=== PATIENT | female | born 1930 | race Caucasian/White ===

== ENCOUNTER 2018-05-31 11:29 | Inpatient (IN) ==
[2018-05-31] MEDS ORDERED: Morphine Inj 4 MG/ML Vial IV.PUSH ONE (12:11)
--- NOTE | 2018-05-31 12:23 | ED ---
HPI General Chief Complaint: Back Pain/Injury Stated Complaint: Lower back pain x 1 week History of Present Illness HPI Narrative: The patient was seen and examined in the presence of the nurse. This patient is brought in by her son for back pain. She does have some degree of chronic back pain but is much worse in the last few days. She is having difficulty getting out of bed. She typically uses cane or walker. No specific injury recently. Denies fever or urinary complaints. Worse with movement. No alleviating factors. Symptoms are moderate to severe in nature. Related Data Home Medications Medication Instructions Recorded Confirmed Synthroid 75 mg PO DAILY 05/31/18 05/31/18 amlodipine 2.5 mg PO DAILY 05/31/18 05/31/18 aspirin [Aspir-81] 81 mg PO DAILY 05/31/18 05/31/18 brinzolamide [Azopt] 1 drp OPHTHALMIC (EYE) BID 05/31/18 05/31/18 fexofenadine-pseudoephedrine 1 tab PO QAM PRN 05/31/18 05/31/18 [Dina-D 24 Hour] fluticasone [Flonase Allergy 2 spray INTRANASAL DAILY 05/31/18 05/31/18 Relief] hydrochlorothiazide 12.5 mg PO DAILY 05/31/18 05/31/18 magnesium 500 mg PO DAILY 05/31/18 05/31/18 meloxicam 15 mg PO DAILY 05/31/18 05/31/18 metoprolol succinate 100 mg PO DAILY 05/31/18 05/31/18 mirabegron [Myrbetriq] 25 mg PO DAILY 05/31/18 05/31/18 omeprazole 40 mg PO DAILY 05/31/18 05/31/18 rosuvastatin [Crestor] 5 mg PO DAILY 05/31/18 05/31/18 Previous Rx's Medication Instructions Recorded hydrocodone-acetaminophen [[place]] 1 tab PO Q6H PRN #12 tab 05/31/18 Allergies Allergy/AdvReac Type Severity Reaction Status Date / Time penicillin G Allergy Severe Rash Verified 05/31/18 11:46 diatrizoate meglumine Allergy Unknown Difficulty Verified 05/31/18 11:46 Breathing gadobenic acid Allergy Unknown Difficulty Verified 05/31/18 11:46 Breathing gadodiamide Allergy Unknown Difficulty Verified 05/31/18 11:46 Breathing gadoteridol Allergy Unknown Difficulty Verified 05/31/18 11:46 Breathing iodixanol Allergy Unknown Difficulty Verified 05/31/18 11:46 Breathing iohexol Allergy Unknown Difficulty Verified 05/31/18 11:46 Breathing Review of Systems ROS: all other systems reviewed are negative [facility] Medical History Medical History Glaucoma (Acute) High cholesterol (Acute) Hypertension (Acute) Surgical History Surgical History History of dilatation and curettage (Acute) Social History Social History Substance History: No History of Abuse Second Hand Smoke Exposure: No Smoking Status: Never smoker How Often Do You Have a Drink Containing Alcohol: Never Recent Travel in [facility] within the Last 8 Weeks: No Recent Out of Country Travel within the Last 8 Weeks: No Exam Narrative Exam Narrative: GENERAL: Elderly demented appearing patient with back pain . SKIN: Focused skin assessment reveals no rash and nodules. Skin is Warm and dry. HEAD: Atraumatic. Normocephalic. EYES: Pupils equal and round. No scleral icterus. No injection or drainage. ENT: No nasal bleeding or discharge. Mucous membranes pink and moist. NECK: Trachea midline. No JVD. CARDIOVASCULAR: Regular rate and rhythm. No murmur appreciated. RESPIRATORY: No accessory muscle use. Clear to auscultation. Breath sounds equal bilaterally. GASTROINTESTINAL: Abdomen soft, non-tender, nondistended. Hepatic and splenic margins not palpable. MUSCULOSKELETAL: No obvious deformities. No clubbing. No cyanosis. No edema. Examination of back reveals no midline tenderness. No bruising or swelling NEUROLOGICAL: Awake and alert. No obvious cranial nerve deficits. Motor grossly within normal limits. Normal speech. PSYCHIATRIC: Appropriate mood and affect; insight and judgment is poor consistent with dementia Course Initial Documented Vital Signs Temperature 98.2 F 05/31/18 11:38 Pulse Rate 64 05/31/18 11:38 Respiratory Rate 16 05/31/18 11:38 Blood Pressure 137/62 05/31/18 11:38 Pulse Oximetry 99 05/31/18 11:38 Last Documented Vital Signs Temperature 98.2 F 05/31/18 11:38 Pulse Rate 60 05/31/18 15:10 Respiratory Rate 16 05/31/18 11:38 Blood Pressure 160/54 H 05/31/18 15:10 Pulse Oximetry 98 05/31/18 15:10 Medical Decision Making MDM Narrative Medical decision making narrative: Patient is very vague in her history giving skills are challenged by her dementia. Son says he is call the doctor's office 3 times to ask for an MRI be done but no one returns calls. I am ordering extensive workup to rule out dangerous things such as herniated disc compressing her cord or AAA. I do not see any objective neurologic deficit. Medical Screen Exam Complete: Yes Emergency Medical Condition: Yes Differential Diagnosis Differential Diagnosis: AAA, disc herniation, sciatica Medical Records Medical records reviewed: Yes I reviewed the patient's medical records. Hyponatremia is not new. Review of labs from 2016 show sodium of 128 Lab Data Lab results reviewed: Yes I reviewed the patient's lab results. Lab results narrative: Urine will be cultured but given the lack of urine symptoms are not going to throw antibiotics at her prior to culture results. CBC is normal. She has hyponatremia which is chronic Result diagrams: 05/31/18 12:15 05/31/18 12:15 Lab Results 05/31/18 05/31/18 05/31/18 Range/Units 12:15 12:15 13:00 CBC w Diff Auto diff final WBC 8.9 (4.0-11.0) th/mm3 RBC 3.65 L (4.00-5.30) mil/mm3 Hgb 12.5 (11.6-15.3) gm/dL Hct 36.8 (35.0-46.0) % MCV 100.7 H (80.0-100.0) fL MCH 34.3 H (27.0-34.0) pg MCHC 34.0 (32.0-36.0) % RDW 11.8 (11.6-17.2) % Plt Count 282 (150-450) th/mm3 MPV 7.1 (7.0-11.0) fL Neut % (Auto) 75.5 H (16.0-70.0) % Lymph % (Auto) 10.8 (9.0-44.0) % [place] % (Auto) 7.7 (0.0-8.0) % Eos % (Auto) 1.7 (0.0-4.0) % Baso % (Auto) 4.3 H (0.0-2.0) % Neut # (Auto) 6.6 (1.8-7.7) th/mm3 Lymph # (Auto) 1.0 (1.0-4.8) th/mm3 [place] # (Auto) 0.7 (0.0-0.9) th/mm3 Eos # (Auto) 0.2 (0.0-0.4) th/mm3 Baso # (Auto) 0.4 H (0.0-0.2) th/mm3 WBC Differential . Differential Comment . Sodium 127 L (136-145) meq/L Potassium 3.5 (3.5-5.1) meq/L Chloride 90 L (98-107) meq/L Carbon Dioxide 28.4 (21.0-32.0) meq/L Anion Gap 9 (5-15) meq/L BUN 32 H (7-18) mg/dL Creatinine 0.70 (0.50-1.00) mg/dL Estimated GFR 79 L (>89) mL/min Random Glucose 100 (74-106) mg/dL Calcium 8.6 (8.5-10.1) mg/dL Ur Collection Type Clean catch Urine Color Yellow (Yellw/Straw) Urine Clarity Cloudy H (Clear) Urine pH 7.0 (5.0-8.5) Ur Specific [place] 1.015 (1.002-1.035) Urine Protein Trace (Neg-Trace) mg/dL Urine Glucose (UA) Negative (Negative) mg/dL Urine Ketones Negative (Negative) mg/dL Urine Occult Blood Large H (Negative) Urine Nitrate Negative (Negative) Urine Bilirubin Negative (Negative) Urine Urobilinogen 0.2 (Less than 2) mg/dL Ur Leukocyte Esterase Moderate H (Negative) Urine RBC 51-189 H (0-3) /hpf Urine WBC 21-50 H (0-5) /hpf Urine WBC Clumps Few H (None) Ur Squamous Epith Cells 0-5 (0-5) /hpf Amorphous Sediment Moderate H (None) /hpf Urine Bacteria Few H (None) /hpf Micro UA Comment Culture indicated Ur Microscopic Review Microscopic reviewed Urine Culture Comments Culture indicated Urine Collection Time 1300 hours Imaging Data Attestation: I personally reviewed and interpreted this imaging study as follows : My impression: Abdomen and pelvis CT as well as lumbar spine CT both reveal multiple unknown chronicity compression fractures including L1 and L3 and L4 Radiologist's impression: Abdomen/Pelvis CT 05/31/18 12:54 CONCLUSION: 1. Mild to moderate L1 compression fracture of unknown chronicity but new since 2016 exam. 2. Mild compression deformities of the inferior endplate of L3 and superior endplate of L4 with configuration suggestive of Schmorl's nodes. These are also new since 2016 exam. Cannot exclude mild compression fractures. 3. Consider MRI examination to evaluate for bone marrow edema and chronicity particularly if patient is symptomatic at palpation of the spinous processes at these levels. There is no significant bony spinal canal stenosis. 4. Additional ancillary findings, as above. Lumbar Spine CT 05/31/18 12:54 CONCLUSION: 1. There are compression deformities of L1, L3, L4, and L5 that are new since the prior study from October 2015. No clear acute fracture line is identified. Therefore, these are age indeterminate but suspected to be subacute or chronic given the appearance. MRI could determine the age, if clinically needed. 2. Stable grade 1 anterolisthesis of L3 on L4 and L4 on L5 secondary to facet arthrosis. 3. No spinal canal stenosis is identified. There are multiple areas of mild to moderate neural foraminal narrowing, as above. 4. Severe atherosclerotic disease. Discharge Plan Discharge Disposition Patient Disposition: Discharge Home Discharge Order Discharge Orders: Discharge Order (Routine); Ordered 05/31/18 Ordered By: Anthony Ayala Discharge Details Diagnosis: Compression fracture, Chronic hyponatremia Physicians Team ED Provider: Anthony Ayala Primary Care Provider: Rosendo Ortega Rxs /Orders / Referrals /Forms Prescriptions: New hydrocodone-acetaminophen [[place]] 5-325 mg tablet 1 tab PO Q6H PRN (Reason: pain) Qty: 12 RF: 0 No Action metoprolol succinate 100 mg Tablet Extended Release 24 Hr 100 mg PO DAILY RF: 0 aspirin [Aspir-81] 81 mg Tablet,Delayed Release (Dr/Ec) 81 mg PO DAILY RF: 0 Synthroid 75 mg PO DAILY RF: 0 amlodipine 2.5 mg Tablet 2.5 mg PO DAILY RF: 0 omeprazole 40 mg Capsule,Delayed Release(Dr/Ec) 40 mg PO DAILY RF: 0 magnesium 250 mg Tablet 500 mg PO DAILY RF: 0 rosuvastatin [Crestor] 5 mg Tablet 5 mg PO DAILY RF: 0 brinzolamide [Azopt] 1 % Drops,Suspension 1 drp OPHTHALMIC (EYE) BID RF: 0 hydrochlorothiazide 12.5 mg Tablet 12.5 mg PO DAILY RF: 0 mirabegron [Myrbetriq] 25 mg Tablet Extended Release 24 Hr 25 mg PO DAILY RF: 0 meloxicam 15 mg Tablet 15 mg PO DAILY RF: 0 fluticasone [Flonase Allergy Relief] 50 mcg/actuation [place],Suspension 2 spray INTRANASAL DAILY RF: 0 fexofenadine-pseudoephedrine [Dina-D 24 Hour] 180-240 mg Tablet Extended Release 24 Hr 1 tab PO QAM PRN (Reason: Allergy Symptoms) RF: 0 Discharge Instructions Additional Instructions: Follow-up with primary care physician. Discuss placement options with your physician. The patient was warned about potential sedation for the medications they will receive on prescription. Return if significant worsening occurs. Utilize walker Discharge Interventions Interventions: Vital Signs Last Done: 05/31/18 15:10 Status ED Status: In Room
[2018-05-31 13:09] LABS: Baso # (Auto) 0.4 th/mm3 (0.0-0.2); Baso % (Auto) 4.3 % (0.0-2.0); Eos # (Auto) 0.2 th/mm3 (0.0-0.4); Eos % (Auto) 1.7 % (0.0-4.0); Hematocrit 36.8 % (35.0-46.0); Hemoglobin 12.5 gm/dL (11.6-15.3); Lymph % (Auto) 10.8 % (9.0-44.0); Mean Corpuscular Hemoglobin 34.3 pg (27.0-34.0); Mean Corpuscular Volume 100.7 fL (80.0-100.0); Mean Platelet Volume 7.1 fL (7.0-11.0); Mono # (Auto) 0.7 th/mm3 (0.0-0.9); Mono % (Auto) 7.7 % (0.0-8.0); Neut # (Auto) 6.6 th/mm3 (1.8-7.7); Neut % (Auto) 75.5 % (16.0-70.0); Platelet Count 282 th/mm3 (150-450); Red Blood Count 3.65 mil/mm3 (4.00-5.30); Red Cell Distribution Width 11.8 % (11.6-17.2); White Blood Count 8.9 th/mm3 (4.0-11.0)
[2018-05-31 13:13] LABS: Bilirubin,Urine Negative (Negative); Clarity,Urine Cloudy (Clear); Color,Urine Yellow (Yellw/Straw); Glucose,Urine (UA) Negative (Negative); Leukocyte Esterase,Urine Moderate (Negative); Nitrite,Urine Negative (Negative); Specific Gravity,Urine 1.015 (1.002-1.035); Urobilinogen,Urine 0.2 mg/dL (Less than 2)
[2018-05-31 13:18] LABS: Potassium 3.5 meq/L (3.5-5.1)
[2018-05-31 13:21] LABS: Calcium 8.6 mg/dL (8.5-10.1); Carbon Dioxide 28.4 meq/L (21.0-32.0)
[2018-05-31 13:32] LABS: Collection Time,Urine 1300 hours; RBC,Urine 51-189 /hpf (0-3)
[2018-05-31 13:33] LABS: Amorphous Sediment,Urine Moderate /hpf; Bacteria,Urine Few /hpf; Squamous Epithelial Cell,Urine 0-5 /hpf (0-5); WBC,Urine 21-50 /hpf (0-5)
--- NOTE | 2018-05-31 14:00 | CT ---
EXAM DATE: 05/31/2018 1:04 PM EDT AGE/SEX: 87 years / Female INDICATIONS: Fall 3 days ago. Inability to ambulate. CLINICAL DATA: This is the patient's initial encounter. Patient reports that signs and symptoms have been present for 3 days and indicates a pain score of 4/10. MEDICAL/SURGICAL HISTORY: Dementia. Hypertension. None. RADIATION DOSE: 7.54 CTDI (mGy) COMPARISON: [facility], report CT ABDOMEN AND PELVIS W/O CONTRAST, 09/16/2009. . TECHNIQUE: Multiple contiguous axial images were obtained through the abdomen. Images were obtained using multiple row detector helical technique. Using automated exposure control and adjustment of the mA and/or kV according to patient size, radiation dose was kept as low as reasonably achievable to o btain optimal diagnostic quality images. DICOM format image data is available electronically for rev iew and comparison. FINDINGS: LOWER LUNGS: The visualized lower lungs are clear. LIVER: Diffusely homogeneous density without intrahepatic ductal dilatation or volume loss. SPLEEN: Homogeneous density without enlargement. PANCREAS: Grossly unremarkable. KIDNEYS: Probable left-sided parapelvic cysts similar to report of prior exam. Subcentimeter hypoden se lesion in the posterior mid right kidney which is too small to fully characterize. Kidneys otherwi se symmetrical in size without significant hydronephrosis or radiopaque renal calculi. ADRENAL GLANDS: Unremarkable. AORTA: Diffusely calcified but nonaneurysmal. BOWEL/MESENTERY: Small to moderate amount of stool throughout the colon. Small bowel loops are not d ilated. No free fluid or drainable fluid collections. No pneumatosis or free air. ABDOMINAL WALL: Intact. BLADDER: Distended but otherwise unremarkable. REPRODUCTIVE: Grossly unremarkable. BONY STRUCTURES: Mild to moderate compression deformity of L1 without retropulsed fragments. Mild com pression deformity of inferior endplate of L3 and superior endplate of L4 may reflect Schmorl's nodes . The bony central canal is grossly patent. Multilevel degenerative spondylosis. CONCLUSION: 1. Mild to moderate L1 compression fracture of unknown chronicity but new since 2016 exam. 2. Mild compression deformities of the inferior endplate of L3 and superior endplate of L4 with conf iguration suggestive of Schmorl's nodes. These are also new since 2016 exam. Cannot exclude mild comp ression fractures. 3. Consider MRI examination to evaluate for bone marrow edema and chronicity particularly if patient is symptomatic at palpation of the spinous processes at these levels. There is no significant bony s gricel canal stenosis. 4. Additional ancillary findings, as above. Electronically signed by: Puma Mcfarland MD 05/31/2018 1:59 PM EDT
--- NOTE | 2018-05-31 14:09 | CT ---
EXAM DATE: 05/31/2018 1:04 PM EDT AGE/SEX: 87 years / Female INDICATIONS: Fall 3 days ago. Inability to ambulate. CLINICAL DATA: This is the patient's initial encounter. Patient reports that signs and symptoms have been present for 3 days and indicates a pain score of 7/10. MEDICAL/SURGICAL HISTORY: Hypertension. Dementia. None. RADIATION DOSE: . CTDI (mGy) ; Reconstructed from previous dataset, no dose [place] [facility] [place]. . TECHNIQUE: Contiguous axial images were acquired with a multirow detector CT scanner without contras t. Multiplanar reconstructions in the sagittal and coronal plane were also performed. Using automate d exposure control and adjustment of the mA and/or kV according to patient size, radiation dose was k ept as low as reasonably achievable to obtain optimal diagnostic quality images. DICOM format image data is available electronically for review and comparison. FINDINGS: Vertebrae: The bones are under mineralized. There is a compression deformity of the L1 vertebral bod y without the visualized acute fracture line. There is approximately 50% height loss at L1. There is also height loss at the inferior endplate of L3 and superior endplate of L4 but no definite acute fra cture line is seen. Subtle height loss is also present at the superior endplate of L5. All of these f indings are new compared to the 2016 examination. Alignment: There is 4 mm of anterolisthesis of L3 on L4 and 6 mm of anterolisthesis of L4 on L5. T12-L1: No disc herniation, canal stenosis, or neural foraminal narrowing is identified. L1-L2: No disc herniation, canal stenosis, or neural foraminal stenosis is identified. L2-L3: Decreased disc height with mild endplate sclerosis and vacuum disc. Mild diffuse disc bulge i s present. No spinal canal stenosis is identified. Neural foramina are mildly narrowed bilaterally. T here is mild facet and ligamentum flavum hypertrophy. L3-L4: There is moderate to severe facet hypertrophy. A mild diffuse disc bulge is present. No spina l canal stenosis is identified. There is mild to moderate bilateral neural foraminal stenosis. L4-L5: There is a mild diffuse disc bulge with severe facet hypertrophy. No spinal canal stenosis is identified. There is moderate bilateral neural foraminal narrowing. L5-S1: Endplate osteophytes anteriorly with mild posterior osteophytic ridging. No significant disc herniation, canal stenosis, or neural foraminal stenosis is identified. There is bilateral facet hype rtrophy. Other: The visualized surrounding structures demonstrate no acute abnormality. There is severe athero sclerotic disease. Sigmoid diverticulosis is present. CONCLUSION: 1. There are compression deformities of L1, L3, L4, and L5 that are new since the prior study from [facility] 2015. No clear acute fracture line is identified. Therefore, these are age indeterminate but suspected to be subacute or chronic given the appearance. MRI could determine the age, if clinically needed. 2. Stable grade 1 anterolisthesis of L3 on L4 and L4 on L5 secondary to facet arthrosis. 3. No spinal canal stenosis is identified. There are multiple areas of mild to moderate neural seamus inal narrowing, as above. 4. Severe atherosclerotic disease. Electronically signed by: Zuhair Lopez MD 05/31/2018 2:07 PM EDT
[2018-05-31] MEDS: Sod Chloride 0.9% Inj 1,000 ML IV.CONT SCH (16:18)
[2018-05-31] MEDS ORDERED: Loratadine/Pseudoephedrine 12HR Tablet PO PRN (17:00)
[2018-05-31] MEDS: Lactobacillus Acidophilus/L. Spores Tablet PO SCH (17:29)
[2018-05-31] MEDS: Heparin - SQ 10,000 UNITS/ML Vial SQ SCH (21:07)
[2018-06-01] MEDS: Sod Chloride 0.9% Inj 1,000 ML IV.CONT SCH ×2 (04:42→17:00)
[2018-06-01] MEDS: Levothyroxine 75 MCG Tablet PO SCH (06:07)
[2018-06-01 07:55] LABS: Baso % (Auto) 0.6 % (0.0-2.0); Eos # (Auto) 0.2 th/mm3 (0.0-0.4); Hematocrit 34.5 % (35.0-46.0); Hemoglobin 11.5 gm/dL (11.6-15.3); Lymph # (Auto) 0.9 th/mm3 (1.0-4.8); Lymph % (Auto) 14.3 % (9.0-44.0); Mean Corpuscular HGB Conc 33.2 % (32.0-36.0); Mean Corpuscular Hemoglobin 33.6 pg (27.0-34.0); Mean Corpuscular Volume 101.1 fL (80.0-100.0); Mono # (Auto) 0.6 th/mm3 (0.0-0.9); Mono % (Auto) 9.6 % (0.0-8.0); Neut # (Auto) 4.4 th/mm3 (1.8-7.7); Neut % (Auto) 71.5 % (16.0-70.0); Platelet Count 289 th/mm3 (150-450); Red Blood Count 3.42 mil/mm3 (4.00-5.30); Red Cell Distribution Width 12.1 % (11.6-17.2); White Blood Count 6.1 th/mm3 (4.0-11.0)
[2018-06-01 08:11] LABS: Chloride 94 meq/L (98-107); Potassium 3.5 meq/L (3.5-5.1); Sodium 130 meq/L (136-145)
[2018-06-01 08:15] LABS: Albumin 2.7 g/dL (3.4-5.0); Anion Gap 9 meq/L (5-15); Carbon Dioxide 27.4 meq/L (21.0-32.0); Glucose,Random 93 mg/dL (74-106)
[2018-06-01 08:24] LABS: Alanine Aminotransferase 16 U/L (10-53); Alkaline Phosphatase 72 U/L (45-117); Aspartate Aminotransferase 18 U/L (15-37); Blood Urea Nitrogen 19 mg/dL (7-18); Glomerular Filtration Rate Greater Than 89 mL/min (>89); Total Protein 6.2 g/dL (6.4-8.2)
[2018-06-01] MEDS: amLODIPine 5 MG Tablet PO SCH (08:24)
[2018-06-01] MEDS: Lactobacillus Acidophilus/L. Spores Tablet PO SCH ×3 (08:24→17:02)
[2018-06-01] MEDS: Tolterodine Tartrate LA 2 MG Capsule PO SCH (08:24)
[2018-06-01] MEDS: Heparin - SQ 10,000 UNITS/ML Vial SQ SCH ×2 (08:25→20:34)
[2018-06-01] MEDS ORDERED: Naproxen 500 MG Tablet PO ONE (10:22)
--- NOTE | 2018-06-01 10:24 | P.HPIM ---
History of Present Illness Primary Care Physician: Rosendo Ortega MD History of Present Illness: Mrs. Castaneda is an 87-year-old female. She came into the emergency department yesterday due to inability to ambulate. She had a fall 2 days prior and appears to have sustained compression fractures at L1, L3, L4, and L5. No incontinence or complain of numbness in bilateral lower extremities. She does have a complete inability to ambulate and even has difficulty moving in the bed. Her baseline is living alone at home and at this point she will not be able to function in that status. - Diagnosis (1) Compression fracture of fifth lumbar vertebra (2) Compression fracture of fourth lumbar vertebra (3) Compression fracture of third lumbar vertebra (4) Compression fracture of first lumbar vertebra (5) Compression fracture Review of Systems Constitutional: No fevers, no chills no night sweats, no fatigue, no weakness Eyes: No eye pain, no blurry vision, no loss of vision ENT: No sore throat, no ear pain, no rhinorrhea Cardiovascular: No chest pain, no tachycardia, no palpitations, no shortness of breath, no syncope Respiratory: No wheezing, no cough, no shortness of breath Gastrointestinal: No abdominal pain, no black tarry stools, no bright red blood per rectum, no vomiting, no diarrhea Musculoskeletal: No joint pain, no muscle cramps, no stiffness, lower back pain Integumentary: No rash, no ulcers, no drainage Neurologic: No sensory loss, no loss of motor function, no dizziness Psychiatric: No behavioral changes, no hallucinations, no suicidal ideations [facility] - History History Provided By: Patient, Family Member - Medical History Medical History: Medical History (Last Reviewed 06/01/18 @ 07:20 by Bobby Garcia) Glaucoma High cholesterol Hypertension - Surgical History Surgical History: Surgical History (Last Reviewed 06/01/18 @ 07:20 by Bobby Garcia) History of dilatation and curettage - Family History Family History: Family History (Last Updated 06/01/18 @ 10:13 by Navjot Reveles MD) Other Osteoarthritis - Tobacco History Second Hand Smoke Exposure: No Tobacco Use In Past 30 Days: No Smoking Status: Never smoker - Alcohol History How Often Do You Have a Drink Containing Alcohol: Monthly or less - Substance Use History Substance History: No History of Abuse - Travel History Recent Travel in the [facility] Within the Last 8 Weeks: No Recent Travel Out of the Country Within the Last 8 Weeks: No - Immunization History Tetanus Immunization: <5 Years Hx Influenza Vaccine This Season: Yes Medications and Allergies Active Medications: Active Medications Al Hydroxide/Mg Hydroxide (Milk Of Sarahi Hart) 30 ml PO Q12H PRN PRN Reason: Mild Constipation Amlodipine Besylate (Norvasc) 2.5 mg PO DAILY [facility] Last Admin: 06/01/18 08:24 Dose: 2.5 mg Aspirin (Ecotrin) 81 mg PO DAILY [facility] Last Admin: 06/01/18 08:25 Dose: 81 mg Atorvastatin Calcium (Lipitor) 10 mg PO DAILY [facility] Last Admin: 06/01/18 08:25 Dose: 10 mg Fluticasone Propionate (Flonase Nasal [place]) 2 spray EACH NARE DAILY [facility] Last Admin: 06/01/18 08:31 Dose: Not Given Heparin Sodium (Porcine) (Heparin Inj) 5,000 units SQ Q12HR [facility] Last Admin: 06/01/18 08:25 Dose: 5,000 units Hydrochlorothiazide (Microzide) 12.5 mg PO DAILY [facility] Last Admin: 06/01/18 08:24 Dose: 12.5 mg Ceftriaxone Sodium 1,000 mg/ (Sodium Chloride) 100 mls @ 200 mls/hr IV.SIG Q24H [facility] Last Infusion: 05/31/18 17:21 Dose: Infused Sodium Chloride (Ns Inj) 1,000 mls @ 84 mls/hr IV.CONT .[id number] [facility] Last Admin: 06/01/18 04:42 Dose: 84 mls/hr Lactobacillus Acidophilus (Lactinex) 1 tab PO TID [facility] Last Admin: 06/01/18 08:24 Dose: 1 tab Levothyroxine Sodium (Synthroid) 75 mcg PO DAILY@0600 [facility] Last Admin: 06/01/18 06:07 Dose: 75 mcg Loratadine/Pseudoephedrine Sulfate (Claritin-D 12 Hour Allergy & Congestion) 1 tab PO Q12H PRN PRN Reason: ALLERGY SYMPTOMS Magnesium Oxide (Mag-Ox) 400 mg PO DAILY@1100 [facility] Meloxicam (Mobic) 15 mg PO DAILY [facility] Metoprolol Succinate (Toprol Xl) 100 mg PO DAILY [facility] Last Admin: 06/01/18 08:25 Dose: 100 mg Ondansetron HCl (Zofran Inj) 4 mg IV.PUSH Q6H PRN PRN Reason: NAUSEA OR VOMITING Pantoprazole Sodium (Protonix) 40 mg PO DAILY [facility] Last Admin: 06/01/18 08:25 Dose: 40 mg Pt Own: Azopt Ophth (Drops) 0 each EACH EYE BID [facility] Tolterodine Tartrate (Detrol La) 2 mg PO DAILY [facility] Last Admin: 06/01/18 08:24 Dose: 2 mg Tramadol HCl (Ultram) 50 mg PO Q6H PRN PRN Reason: Pain 3 to 10 Last Admin: 05/31/18 17:29 Dose: 50 mg Allergies Allergy/AdvReac Type Severity Reaction Status Date / Time penicillin G Allergy Severe Rash Verified 05/31/18 11:46 diatrizoate meglumine Allergy Unknown Difficulty Verified 05/31/18 11:46 Breathing gadobenic acid Allergy Unknown Difficulty Verified 05/31/18 11:46 Breathing gadodiamide Allergy Unknown Difficulty Verified 05/31/18 11:46 Breathing gadoteridol Allergy Unknown Difficulty Verified 05/31/18 11:46 Breathing iodixanol Allergy Unknown Difficulty Verified 05/31/18 11:46 Breathing iohexol Allergy Unknown Difficulty Verified 05/31/18 11:46 Breathing Home Medications Medication Instructions Recorded Confirmed Type Synthroid 75 mg PO DAILY 05/31/18 05/31/18 History amlodipine 2.5 mg PO DAILY 05/31/18 05/31/18 History aspirin [Aspir-81] 81 mg PO DAILY 05/31/18 05/31/18 History brinzolamide [Azopt] 1 drp OPHTHALMIC (EYE) BID 05/31/18 05/31/18 History fexofenadine-pseudoephedrine 1 tab PO QAM PRN 05/31/18 05/31/18 History [Dina-D 24 Hour] fluticasone [Flonase Allergy 2 spray INTRANASAL DAILY 05/31/18 05/31/18 History Relief] hydrochlorothiazide 12.5 mg PO DAILY 05/31/18 05/31/18 History magnesium 500 mg PO DAILY 05/31/18 05/31/18 History meloxicam 15 mg PO DAILY 05/31/18 05/31/18 History metoprolol succinate 100 mg PO DAILY 05/31/18 05/31/18 History mirabegron [Myrbetriq] 25 mg PO DAILY 05/31/18 05/31/18 History omeprazole 40 mg PO DAILY 05/31/18 05/31/18 History rosuvastatin [Crestor] 5 mg PO DAILY 05/31/18 05/31/18 History Exam Vital signs: Vital Signs 05/31/18 11:38 05/31/18 15:10 05/31/18 16:00 Temperature 98.2 F Pulse Rate 64 60 67 Respiratory Rate 16 18 Blood Pressure 137/62 160/54 H 170/85 H Pulse Oximetry 99 98 98 05/31/18 17:00 05/31/18 20:00 06/01/18 00:00 Temperature 98.9 F 98.8 F Pulse Rate 69 60 60 Respiratory Rate 16 16 Blood Pressure 171/58 H 125/54 L 126/61 Pulse Oximetry 98 99 100 06/01/18 08:00 Temperature 97.2 F L Pulse Rate 78 Respiratory Rate 18 Blood Pressure 123/60 Pulse Oximetry 97 Intake & Output 05/31/18 06/01/18 06/01/18 18:59 06:59 18:59 Intake Total 340 / 340 1000 / 1000 Output Total 0 / 0 300 / 300 Balance 340 / 340 700 / 700 Weight 50 kg 51.3 kg Intake: IV 100 / 100 1000 / 1000 NS Inj 1,000 ML @ 84 mls/hr IV. 1000 / 1000 CONT .[id number] [facility] Rx#: [id number] Rocephin Inj 1,000 MG In NS Inj 100 / 100 100 ML @ 200 mls/hr IV.SIG Q24H [facility] Rx#:[id number] Oral 240 / 240 Output: Urine 300 / 300 Stool 0 / 0 Other: # Voids 1 1 Narrative: GENERAL: NAD, A&Ox3 HEAD: Normocephalic. NECK: Supple, trachea midline. No lymphadenopathy. EYES: No scleral icterus. No injection or drainage. CARDIOVASCULAR: Regular rate and rhythm without murmurs, gallops, or rubs. RESPIRATORY: Breath sounds equal bilaterally. No accessory muscle use. GASTROINTESTINAL: Abdomen soft, non-tender, nondistended. MUSCULOSKELETAL: No cyanosis, or edema. Tenderness to palpation at lower spine , decreased range of motion to lower back pain. SKIN: Warm and dry. NEURO: No focal neurological deficits. Results - Labs CBC & Chem 7: 06/01/18 07:20 06/01/18 07:20 Labs: Short CBC 05/31/18 06/01/18 Range/Units 12:15 07:20 WBC 8.9 6.1 (4.0-11.0) th/mm3 Hgb 12.5 11.5 L (11.6-15.3) gm/dL Hct 36.8 34.5 L (35.0-46.0) % Plt Count 282 289 (150-450) th/mm3 BMP 05/31/18 06/01/18 12:15 07:20 Sodium 127 L 130 L Potassium 3.5 3.5 Chloride 90 L 94 L Carbon Dioxide 28.4 27.4 BUN 32 H 19 H Creatinine 0.70 0.60 Calcium 8.6 8.0 L Liver Function 06/01/18 Range/Units 07:20 Total Bilirubin 0.5 (0.2-1.0) mg/dL AST 18 (15-37) U/L ALT 16 (10-53) U/L Alkaline Phosphatase 72 (45-117) U/L Albumin 2.7 L (3.4-5.0) g/dL Urine 05/31/18 Range/Units 13:00 Urine Color Yellow (Yellw/Straw) Urine Clarity Cloudy H (Clear) Urine pH 7.0 (5.0-8.5) Ur Specific [place] 1.015 (1.002-1.035) Urine Protein Trace (Neg-Trace) mg/dL Urine Glucose (UA) Negative (Negative) mg/dL - Imaging Impressions Abdomen/Pelvis CT 05/31/18 12:54 CONCLUSION: 1. Mild to moderate L1 compression fracture of unknown chronicity but new since 2016 exam. 2. Mild compression deformities of the inferior endplate of L3 and superior endplate of L4 with configuration suggestive of Schmorl's nodes. These are also new since 2016 exam. Cannot exclude mild compression fractures. 3. Consider MRI examination to evaluate for bone marrow edema and chronicity particularly if patient is symptomatic at palpation of the spinous processes at these levels. There is no significant bony spinal canal stenosis. 4. Additional ancillary findings, as above. Lumbar Spine CT 05/31/18 12:54 CONCLUSION: 1. There are compression deformities of L1, L3, L4, and L5 that are new since the prior study from October 2015. No clear acute fracture line is identified. Therefore, these are age indeterminate but suspected to be subacute or chronic given the appearance. MRI could determine the age, if clinically needed. 2. Stable grade 1 anterolisthesis of L3 on L4 and L4 on L5 secondary to facet arthrosis. 3. No spinal canal stenosis is identified. There are multiple areas of mild to moderate neural foraminal narrowing, as above. 4. Severe atherosclerotic disease. Caprini VTE Risk Assessment Caprini VTE Risk Assessment: Moderate/High Risk (score >= 2) Caprini Risk Assessment Model: Point Value = 1 Point Value = 2 Point Value = 3 Point Value = 5 Age 41-60 Minor surgery BMI > 25 kg/m2 Swollen legs Varicose veins or History of unexplained or recurrent spontaneous Oral contraceptives or hormone replacement Sepsis (< 1 month) Serious lung disease, including pneumonia (< 1 month) Abnormal pulmonary function Acute myocardial infarction Congestive heart failure (< 1 month) History of inflammatory bowel disease Medical patient at bed rest Age 61-74 Arthroscopic surgery Major open surgery (> 45 min) Laparoscopic surgery (> 45 min) Malignancy Confined to bed (> 72 hours) Immobilizing plaster cast Central venous access Age >= 75 History of VTE Family history of VTE Factor V Leiden Prothrombin [id number] Lupus anticoagulant Anticardiolipin antibodies Elevated serum homocysteine Heparin-induced thrombocytopenia Other congenital or acquired thrombophilia Stroke (< 1 month) Elective arthroplasty Hip, pelvis, or leg fracture Acute spinal cord injury (< 1 month) Prophylaxis Regimen: Total Risk Factor Score Risk Level Prophylaxis Regimen 0-1 Low Early ambulation 2 Moderate Order ONE of the following: *Sequential Compression Device (SCD) *Heparin 5000 units SQ BID 3-4 Higher Order ONE of the following medications: *Heparin 5000 units SQ TID *Enoxaparin/Lovenox 40 mg SQ daily (WT < 150 kg, CrCl > 30 mL/min) *Enoxaparin/Lovenox 30 mg SQ daily (WT < 150 kg, CrCl > 10-29 mL/min) *Enoxaparin/Lovenox 30 mg SQ BID (WT < 150 kg, CrCl > 30 mL/min) AND/OR *Sequential Compression Device (SCD) 5 or more Highest Order ONE of the following medications: *Heparin 5000 units SQ TID (Preferred with Epidurals) *Enoxaparin/Lovenox 40 mg SQ daily (WT < 150 kg, CrCl > 30 mL/min) *Enoxaparin/Lovenox 30 mg SQ daily (WT < 150 kg, CrCl > 10-29 mL/min) *Enoxaparin/Lovenox 30 mg SQ BID (WT < 150 kg, CrCl > 30 mL/min) AND *Sequential Compression Device (SCD) Assessment and Plan - Assessment (1) Compression fracture of fifth lumbar vertebra Code(s): S32.050A - Wedge compression fracture of fifth lumbar vertebra, initial encounter for closed fracture Status: Acute (2) Compression fracture of fourth lumbar vertebra Code(s): S32.040A - Wedge compression fracture of fourth lumbar vertebra, initial encounter for closed fracture Status: Acute (3) Compression fracture of third lumbar vertebra Code(s): S32.030A - Wedge compression fracture of third lumbar vertebra, initial encounter for closed fracture Status: Acute (4) Compression fracture of first lumbar vertebra Code(s): S32.010A - Wedge compression fracture of first lumbar vertebra, initial encounter for closed fracture Status: Acute (5) Compression fracture Status: Acute - Plan 87-year-old female admitted secondary to multiple level compression fractures and severe back pain inability to ambulate and uncontrolled pain Severe back pain Multiple Level Compression Fractures L1 compression fracture L3 compression fracture L4 compression fracture L5 compression fracture With narcotics due to age Tramadol provided for pain overnight, but does not appear to be beneficial Will increase to [place] Add NSAID (Naproxen) Physical therapy as tolerated Patient will likely need residential facility Hypertension Continue baseline treatment Follow blood pressures Adjust treatments as needed Hyperlipidemia Continue present treatment Follow as an outpatient Glaucoma Continue baseline treatments DVT Prophylaxis Heparin H&P: Quality - VTE Deep Vein Thrombosis/Pulmonary Embolism Present on Admission: No
[2018-06-01] MEDS: Meloxicam 15 MG Tablet PO SCH ×2 (10:54→10:58)
[2018-06-01] MEDS: Magnesium Oxide 400 MG Tablet PO SCH (10:54)
[2018-06-01] MEDS ORDERED: Vancomycin Consult Pharmacy OTHER PRN (13:20)
[2018-06-01] MEDS ORDERED: Vancomycin Inj 1 GM/200 ML PIGGYBACK IV.SIG SCH (14:00)
[2018-06-01] MEDS ORDERED: Vancomycin Inj 1,000 MG in Sodium Chlor 0.9% Inj 250 ML IV.SIG SCH (16:00)
[2018-06-01] MEDS: AZOPT EACH EYE SCH (20:34)
[2018-06-01] MEDS: Naproxen 250 MG Tablet PO SCH (20:35)
[2018-06-01] MEDS: Docusate Sodium 100 MG Capsule PO SCH (20:35)
[2018-06-02] MEDS: Sod Chloride 0.9% Inj 1,000 ML IV.CONT SCH ×3 (03:20→17:06)
[2018-06-02] MEDS: Levothyroxine 75 MCG Tablet PO SCH (05:21)
[2018-06-02] MEDS: Docusate Sodium 100 MG Capsule PO SCH (09:18)
[2018-06-02] MEDS: Naproxen 250 MG Tablet PO SCH ×2 (09:19→20:45)
[2018-06-02] MEDS: amLODIPine 5 MG Tablet PO SCH (09:19)
[2018-06-02] MEDS: Lactobacillus Acidophilus/L. Spores Tablet PO SCH ×3 (09:20→17:08)
[2018-06-02] MEDS: AZOPT EACH EYE SCH ×2 (09:22→20:45)
[2018-06-02] MEDS: Meloxicam 15 MG Tablet PO SCH (09:22)
[2018-06-02] MEDS: Heparin - SQ 10,000 UNITS/ML Vial SQ SCH ×2 (09:22→20:45)
[2018-06-02] MEDS: Tolterodine Tartrate LA 2 MG Capsule PO SCH (09:39)
--- NOTE | 2018-06-02 11:13 | P.PNIM ---
Subjective Interval history: Patient complains of diarrhea last night and this morning. This may be secondary to Colace. Will screen for C. difficile. She does have MRSA which has resulted in urine. She was converted to inpatient status yesterday based on complicated urinary tract infection. Hyponatremia remains but is improving slowly with IV hydration. Regarding her multiple level compression fracture, she still has pain is not able to ambulate at a functional status. Physical Exam Vital signs: Vital Signs 06/01/18 12:00 06/01/18 16:00 06/01/18 20:00 Temperature 98.5 F 97.8 F 98 F Pulse Rate 66 79 69 Respiratory Rate 18 18 20 Blood Pressure 110/55 L 118/57 L 150/66 H Pulse Oximetry 96 98 99 06/02/18 00:00 06/02/18 08:00 Temperature 98.2 F 97.1 F L Pulse Rate 66 63 Respiratory Rate 20 18 Blood Pressure 153/65 H 166/73 H Pulse Oximetry 99 98 Intake & Output 06/01/18 06/02/18 06/02/18 18:59 06:59 18:59 Intake Total 2150 / 2150 1240 / 1240 Balance 2150 / 2150 1240 / 1240 Weight 51.5 kg Intake: IV 1350 / 1350 1000 / 1000 NS Inj 1,000 ML @ 84 mls/hr IV. 1000 / 1000 1000 / 1000 CONT .[id number] [facility] Rx#: [id number] Vancomycin Inj 1,000 MG In NS 250 / 250 Inj 250 ML @ 250 mls/hr IV.SIG Q36H [facility] Rx#:[id number] Rocephin Inj 1,000 MG In NS Inj 100 / 100 100 ML @ 200 mls/hr IV.SIG Q24H [facility] Rx#:[id number] Oral 800 / 800 240 / 240 Other: # Voids 2 # Urine Diapers 5 # Bowel Movements 5 Narrative: GENERAL: NAD, A&Ox3 HEAD: Normocephalic. NECK: Supple, trachea midline. No lymphadenopathy. EYES: No scleral icterus. No injection or drainage. CARDIOVASCULAR: Regular rate and rhythm without murmurs, gallops, or rubs. RESPIRATORY: Breath sounds equal bilaterally. No accessory muscle use. GASTROINTESTINAL: Abdomen soft, non-tender, nondistended. MUSCULOSKELETAL: No cyanosis, or edema. Tenderness to palpation at lower spine , decreased range of motion to lower back pain. SKIN: Warm and dry. NEURO: No focal neurological deficits. Results - Labs CBC & Chem 7: 06/01/18 07:20 06/01/18 07:20 Laboratory Results - last 24 hr 05/31/18 13:00 Ur Collection Type Clean catch Urine Color Yellow Urine Clarity Cloudy H Urine pH 7.0 Ur Specific [place] 1.015 Urine Protein Trace Urine Glucose (UA) Negative Urine Ketones Negative Urine Occult Blood Large H Urine Nitrate Negative Urine Bilirubin Negative Urine Urobilinogen 0.2 Ur Leukocyte Esterase Moderate H Urine RBC 51-189 H Urine WBC 21-50 H Urine WBC Clumps Few H Ur Squamous Epith Cells 0-5 Amorphous Sediment Moderate H Urine Bacteria Few H Micro UA Comment Culture indicated Ur Microscopic Review Microscopic reviewed Urine Culture Comments Culture indicated Urine Collection Time 1300 Microbiology 05/31/18 13:00 Clean Catch Urine Urine Culture - Final S. aureus MRSA Assessment and Plan - Assessment (1) Compression fracture of fifth lumbar vertebra Code(s): S32.050A - Wedge compression fracture of fifth lumbar vertebra, initial encounter for closed fracture Status: Acute (2) Compression fracture of fourth lumbar vertebra Code(s): S32.040A - Wedge compression fracture of fourth lumbar vertebra, initial encounter for closed fracture Status: Acute (3) Compression fracture of third lumbar vertebra Code(s): S32.030A - Wedge compression fracture of third lumbar vertebra, initial encounter for closed fracture Status: Acute (4) Compression fracture of first lumbar vertebra Code(s): S32.010A - Wedge compression fracture of first lumbar vertebra, initial encounter for closed fracture Status: Acute (5) Compression fracture Status: Acute - Plan 87-year-old female admitted secondary to multiple level compression fractures and severe back pain inability to ambulate and uncontrolled pain Severe back pain Multiple Level Compression Fractures L1 compression fracture L3 compression fracture L4 compression fracture L5 compression fracture No significant improvement, patient still is not functional for consideration for return to home care home facility likely needed at discharge Continue [place] for pain treatment NSAID (Naproxen) Physical therapy as tolerated Diarrhea May be related Colace or antibiotics Discontinue Colace C. difficile screen Probiotics Complex urinary tract infection MRSA urinary tract infection Continue to follow cultures Rocephin Vancomycin Probiotics Hypertension Continue baseline treatment Follow blood pressures Adjust treatments as needed Hyperlipidemia Continue present treatment Follow as an outpatient Glaucoma Continue baseline treatments DVT Prophylaxis Heparin
[2018-06-02] MEDS: Magnesium Oxide 400 MG Tablet PO SCH (12:44)
[2018-06-02] MEDS: Vancomycin Inj 1,000 MG in Sodium Chlor 0.9% Inj 250 ML IV.SIG SCH (17:47)
[2018-06-03] MEDS: Sod Chloride 0.9% Inj 1,000 ML IV.CONT SCH ×2 (03:25→05:06)
[2018-06-03] MEDS: Levothyroxine 75 MCG Tablet PO SCH (05:06)
[2018-06-03 06:55] LABS: Chloride 100 meq/L (98-107); Potassium 3.1 meq/L (3.5-5.1); Sodium 136 meq/L (136-145)
[2018-06-03 07:01] LABS: Albumin 2.4 g/dL (3.4-5.0); Anion Gap 8 meq/L (5-15); Blood Urea Nitrogen 12 mg/dL (7-18); Carbon Dioxide 27.8 meq/L (21.0-32.0); Glucose,Random 95 mg/dL (74-106)
[2018-06-03 07:04] LABS: Alanine Aminotransferase 12 U/L (10-53); Aspartate Aminotransferase 14 U/L (15-37); Glomerular Filtration Rate Greater Than 89 mL/min (>89)
[2018-06-03 07:05] LABS: Total Protein 5.7 g/dL (6.4-8.2)
[2018-06-03 07:07] LABS: Alkaline Phosphatase 76 U/L (45-117)
[2018-06-03] MEDS: Heparin - SQ 10,000 UNITS/ML Vial SQ SCH ×2 (09:42→21:26)
[2018-06-03] MEDS: AZOPT EACH EYE SCH ×2 (09:42→21:31)
[2018-06-03] MEDS: Lactobacillus Acidophilus/L. Spores Tablet PO SCH ×3 (09:43→18:10)
[2018-06-03] MEDS: Naproxen 250 MG Tablet PO SCH ×2 (09:44→21:26)
[2018-06-03] MEDS: amLODIPine 5 MG Tablet PO SCH (09:44)
[2018-06-03] MEDS: Meloxicam 15 MG Tablet PO SCH (09:45)
[2018-06-03] MEDS: Tolterodine Tartrate LA 2 MG Capsule PO SCH (09:45)
[2018-06-03] MEDS: Vancomycin Inj 1,000 MG in Sodium Chlor 0.9% Inj 250 ML IV.SIG SCH (10:12)
[2018-06-03] MEDS: Magnesium Oxide 400 MG Tablet PO SCH (10:12)
--- NOTE | 2018-06-03 15:00 | P.PNIM ---
Subjective Interval history: Patient is able to get out of bed into the chair. She is not yet demonstrating functional status for return to home. No other complaints. Physical Exam Vital signs: Vital Signs 06/02/18 16:00 06/02/18 20:00 06/03/18 00:00 Temperature 98.1 F 98.7 F 97.7 F Pulse Rate 65 62 71 Respiratory Rate 18 16 16 Blood Pressure 144/67 H 125/58 L 125/60 Pulse Oximetry 97 93 L 94 L 06/03/18 08:00 06/03/18 12:00 Temperature 97.1 F L 97.2 F L Pulse Rate 63 99 H Respiratory Rate 19 19 Blood Pressure 153/65 H 149/68 H Pulse Oximetry 100 95 Intake & Output 06/02/18 06/03/18 06/03/18 18:59 06:59 18:59 Intake Total 1650 / 1650 1000 / 1000 480 / 480 Output Total 1900 / 1900 Balance 1650 / 1650 1000 / 1000 -1420 / -1420 Weight 51.2 kg Intake: IV 1350 / 1350 1000 / 1000 NS Inj 1,000 ML @ 84 mls/hr IV. 1000 / 1000 1000 / 1000 CONT .[id number] [facility] Rx#: [id number] Vancomycin Inj 1,000 MG In NS 250 / 250 Inj 250 ML @ 250 mls/hr IV.SIG Q18H [facility] Rx#:[id number] Rocephin Inj 1,000 MG In NS Inj 100 / 100 100 ML @ 200 mls/hr IV.SIG Q24H [facility] Rx#:[id number] Oral 300 / 300 480 / 480 Output: Urine 1900 / 1900 Stool 0 / 0 Other: Post Void Residual 1,600 # Voids 2 1 Date of Last Bowel Movement 06/03/18 Narrative: GENERAL: NAD, A&Ox3 HEAD: Normocephalic. NECK: Supple, trachea midline. No lymphadenopathy. EYES: No scleral icterus. No injection or drainage. CARDIOVASCULAR: Regular rate and rhythm without murmurs, gallops, or rubs. RESPIRATORY: Breath sounds equal bilaterally. No accessory muscle use. GASTROINTESTINAL: Abdomen soft, non-tender, nondistended. MUSCULOSKELETAL: No cyanosis, or edema. Tenderness to palpation at lower spine , decreased range of motion to lower back pain. SKIN: Warm and dry. NEURO: No focal neurological deficits. Results - Labs CBC & Chem 7: 06/01/18 07:20 06/03/18 06:13 Laboratory Results - last 24 hr 06/02/18 06/03/18 07:30 06:13 Sodium 136 Potassium 3.1 L Chloride 100 Carbon Dioxide 27.8 Anion Gap 8 BUN 12 Creatinine 0.53 Estimated GFR Greater than 89 Random Glucose 95 Calcium 8.0 L Total Bilirubin 0.2 AST 14 L ALT 12 Alkaline Phosphatase 76 Total Protein 5.7 L Albumin 2.4 L Random Vancomycin Less than 0.8 Assessment and Plan - Assessment (1) Compression fracture of fifth lumbar vertebra Code(s): S32.050A - Wedge compression fracture of fifth lumbar vertebra, initial encounter for closed fracture Status: Acute (2) Compression fracture of fourth lumbar vertebra Code(s): S32.040A - Wedge compression fracture of fourth lumbar vertebra, initial encounter for closed fracture Status: Acute (3) Compression fracture of third lumbar vertebra Code(s): S32.030A - Wedge compression fracture of third lumbar vertebra, initial encounter for closed fracture Status: Acute (4) Compression fracture of first lumbar vertebra Code(s): S32.010A - Wedge compression fracture of first lumbar vertebra, initial encounter for closed fracture Status: Acute (5) Compression fracture Status: Acute - Plan 87-year-old female admitted secondary to multiple level compression fractures and severe back pain inability to ambulate and uncontrolled pain Possible discharge to detention facility tomorrow. Patient does not appear to be stable for return to home. Hyponatremia resolved. Severe back pain Multiple Level Compression Fractures L1 compression fracture L3 compression fracture L4 compression fracture L5 compression fracture No significant improvement, patient still is not functional for consideration for return to home snf facility likely needed at discharge Continue [place] for pain treatment NSAID (Naproxen) Physical therapy as tolerated Diarrhea May be related Colace or antibiotics Discontinue Colace C. difficile screen Probiotics Complex urinary tract infection MRSA urinary tract infection Continue to follow cultures Rocephin Vancomycin Probiotics Hypertension Continue baseline treatment Follow blood pressures Adjust treatments as needed Hyperlipidemia Continue present treatment Follow as an outpatient Glaucoma Continue baseline treatments DVT Prophylaxis Heparin
[2018-06-04] MEDS: Vancomycin Inj 1,000 MG in Sodium Chlor 0.9% Inj 250 ML IV.SIG SCH (04:54)
[2018-06-04] MEDS: Levothyroxine 75 MCG Tablet PO SCH (05:19)
[2018-06-04 07:08] LABS: Eos # (Auto) 0.3 th/mm3 (0.0-0.4); Eos % (Auto) 7.7 % (0.0-4.0); Hematocrit 35.2 % (35.0-46.0); Hemoglobin 11.6 gm/dL (11.6-15.3); Lymph % (Auto) 22.5 % (9.0-44.0); Mean Corpuscular HGB Conc 33.1 % (32.0-36.0); Mean Corpuscular Hemoglobin 33.7 pg (27.0-34.0); Mean Corpuscular Volume 101.7 fL (80.0-100.0); Mean Platelet Volume 6.8 fL (7.0-11.0); Mono # (Auto) 0.5 th/mm3 (0.0-0.9); Mono % (Auto) 10.4 % (0.0-8.0); Neut # (Auto) 2.7 th/mm3 (1.8-7.7); Neut % (Auto) 58.4 % (16.0-70.0); Platelet Count 268 th/mm3 (150-450); Red Blood Count 3.46 mil/mm3 (4.00-5.30); Red Cell Distribution Width 11.8 % (11.6-17.2); White Blood Count 4.5 th/mm3 (4.0-11.0)
[2018-06-04 07:18] LABS: Chloride 98 meq/L (98-107); Potassium 3.4 meq/L (3.5-5.1); Sodium 135 meq/L (136-145)
[2018-06-04 07:22] LABS: Albumin 2.6 g/dL (3.4-5.0); Anion Gap 10 meq/L (5-15); Blood Urea Nitrogen 16 mg/dL (7-18); Calcium 7.8 mg/dL (8.5-10.1); Carbon Dioxide 26.8 meq/L (21.0-32.0); Glucose,Random 89 mg/dL (74-106)
[2018-06-04 07:25] LABS: Alanine Aminotransferase 16 U/L (10-53); Aspartate Aminotransferase 15 U/L (15-37); Glomerular Filtration Rate Greater Than 89 mL/min (>89)
[2018-06-04 07:27] LABS: Total Protein 5.8 g/dL (6.4-8.2)
[2018-06-04 07:28] LABS: Alkaline Phosphatase 84 U/L (45-117)
[2018-06-04] MEDS: Tolterodine Tartrate LA 2 MG Capsule PO SCH (09:04)
[2018-06-04] MEDS: amLODIPine 5 MG Tablet PO SCH (09:04)
[2018-06-04] MEDS: Naproxen 250 MG Tablet PO SCH (09:06)
[2018-06-04] MEDS: AZOPT EACH EYE SCH (09:06)
[2018-06-04] MEDS: Meloxicam 15 MG Tablet PO SCH (09:07)
[2018-06-04] MEDS: Heparin - SQ 10,000 UNITS/ML Vial SQ SCH (09:07)
[2018-06-04] MEDS: Lactobacillus Acidophilus/L. Spores Tablet PO SCH (09:07)
--- NOTE | 2018-06-04 10:02 | P.DS ---
Date of admission: 06/01/18 15:56 Primary care physician: Rosendo Ortega MD Brief History from admission: Mrs. Castaneda is an 87-year-old female. She came into the emergency department yesterday due to inability to ambulate. She had a fall 2 days prior and appears to have sustained compression fractures at L1, L3, L4, and L5. No incontinence or complain of numbness in bilateral lower extremities. She does have a complete inability to ambulate and even has difficulty moving in the bed. Her baseline is living alone at home and at this point she will not be able to function in that status. DS: Diagnosis - Discharge Diagnosis (1) Compression fracture of fifth lumbar vertebra Status: Acute (2) Compression fracture of fourth lumbar vertebra Status: Acute (3) Compression fracture of third lumbar vertebra Status: Acute (4) Compression fracture of first lumbar vertebra Status: Acute (5) Compression fracture Status: Acute DS: Medications - Discharge Medications Prescriptions: acidophilus-sporogenes [Acidophilus Ex Str (L. sporog)] 1 tab PO TID #30 tab hydrocodone-acetaminophen [[place]] 1 tab PO Q6H PRN #12 tab PRN Reason: pain hydrocodone-acetaminophen 1 tab PO Q4H PRN #20 tab PRN Reason: Pain 3 to 6 sulfamethoxazole-trimethoprim [Bactrim DS] 1 tab PO Q12H #10 tab DS: Summary Hospital Course: Ms. Castaneda is an 88-year-old female. She was admitted secondary to severe back pain. She was also found to have a urinary tract infection. She had compression fractures at L1, L3, L4, and L5. These may have been related to a fall 2 days prior to arrival. Urinary tract infection and not being a complicated UTI related to MRSA. Sensitivities were obtained and the patient has sensitivity to Bactrim. She is not ambulating a functional status and lives at home alone. She is medically stable and cleared for discharge to a long term facility today with continuation of Bactrim as a treatment. She also will continue with physical therapy until stable for return to home. - Time Spent with Patient Total time spent providing and/or coordinating discharge services: Less than 30 minutes - Quality: VTE Deep Vein Thrombosis/Pulmonary Embolism Present on Admission: No Exam Vital signs: Vital Signs 06/03/18 12:00 06/03/18 16:00 06/03/18 20:00 Temperature 97.2 F L 97.1 F L 96.9 F L Pulse Rate 99 H 68 65 Respiratory Rate 19 20 16 Blood Pressure 149/68 H 154/66 H 128/61 Pulse Oximetry 95 99 96 06/04/18 00:00 Temperature 97.0 F L Pulse Rate 74 Respiratory Rate 16 Blood Pressure 156/66 H Pulse Oximetry 96 Intake & Output 06/03/18 06/04/18 06/04/18 18:59 06:59 18:59 Intake Total 720 / 720 600 / 600 Output Total 2800 / 2800 Balance -2080 / -2080 600 / 600 Intake: IV 600 / 600 Vancomycin Inj 1,000 MG In NS 500 / 500 Inj 250 ML @ 250 mls/hr IV.SIG Q18H KAROL Rx#:[id number] Rocephin Inj 1,000 MG In NS Inj 100 / 100 100 ML @ 200 mls/hr IV.SIG Q24H AKROL Rx#:[id number] Oral 720 / 720 Output: Urine 2800 / 2800 Stool 0 / 0 Other: Date of Last Bowel Movement 06/03/18 06/03/18 Results Procedures completed during hospitalization: None Labs on day of discharge: Labs from last 24 hours 06/04/18 06/04/18 06:35 06:35 CBC w Diff Auto diff final WBC 4.5 RBC 3.46 L Hgb 11.6 Hct 35.2 MCV 101.7 H MCH 33.7 MCHC 33.1 RDW 11.8 Plt Count 268 MPV 6.8 L Neut % (Auto) 58.4 Lymph % (Auto) 22.5 [place] % (Auto) 10.4 H Eos % (Auto) 7.7 H Baso % (Auto) 1.0 Neut # (Auto) 2.7 Lymph # (Auto) 1.0 [place] # (Auto) 0.5 Eos # (Auto) 0.3 Baso # (Auto) 0.0 WBC Differential . Differential Comment . Sodium 135 L Potassium 3.4 L Chloride 98 Carbon Dioxide 26.8 Anion Gap 10 BUN 16 Creatinine 0.52 Estimated GFR Greater than 89 Random Glucose 89 Calcium 7.8 L Total Bilirubin 0.2 AST 15 ALT 16 Alkaline Phosphatase 84 Total Protein 5.8 L Albumin 2.6 L - Impressions ITS Impressions Abdomen/Pelvis CT 05/31/18 12:54 CONCLUSION: 1. Mild to moderate L1 compression fracture of unknown chronicity but new since 2016 exam. 2. Mild compression deformities of the inferior endplate of L3 and superior endplate of L4 with configuration suggestive of Schmorl's nodes. These are also new since 2016 exam. Cannot exclude mild compression fractures. 3. Consider MRI examination to evaluate for bone marrow edema and chronicity particularly if patient is symptomatic at palpation of the spinous processes at these levels. There is no significant bony spinal canal stenosis. 4. Additional ancillary findings, as above. Lumbar Spine CT 05/31/18 12:54 CONCLUSION: 1. There are compression deformities of L1, L3, L4, and L5 that are new since the prior study from October 2015. No clear acute fracture line is identified. Therefore, these are age indeterminate but suspected to be subacute or chronic given the appearance. MRI could determine the age, if clinically needed. 2. Stable grade 1 anterolisthesis of L3 on L4 and L4 on L5 secondary to facet arthrosis. 3. No spinal canal stenosis is identified. There are multiple areas of mild to moderate neural foraminal narrowing, as above. 4. Severe atherosclerotic disease. Discharge Plan - Discharge Disposition Patient Disposition: 03 Discharge to SNF - Discharge Condition Condition: Stable - Discharge Order Discharge Orders: Discharge Order (Routine); Ordered 06/04/18 Ordered By: Navjot Reveles - Discharge Details Anticipated Discharge Date: 06/04/18 - Physicians Team Primary Care Provider: Rosendo Ortega Attending Provider: Navjot Reveles Other Providers: [facility]
[2018-06-04 10:34] VITALS: BP 171/71; PULSE 62; RESP 20; TEMP 98.5; O2SAT 98
[2018-06-05] MEDS ORDERED: Pharmacy Ordered Lab Info OTHER ONE (16:45)
== END 2018-06-04 11:24 ==
LOC: PHEDA 11:29 → PHED 11:29 → PH3 17:00
PROVIDERS: ADMIT Hospitalist; ATTEND Hospitalist